=== PATIENT | male | born 1970 | race Caucasian/White ===

== ENCOUNTER 2017-05-14 21:54 | Observation (INO) | payer MEDICARE ==
[~2017-05-14] VITALS: Ht 180.3 cm; Wt 110.0 kg
[2017-05-14] MEDS ORDERED: IOHEXOL 350 MG/ML 10 ML VIAL (for RAD DIAG) IVCONTRAST ONE (21:55)
[2017-05-14 21:56] VITALS: BP 180/90; PULSE 105; RESP 16; TEMP 98; O2SAT 97
[2017-05-14 22:50] VITALS: BP 120/77; PULSE 92; RESP 16; O2SAT 100
[2017-05-14] MEDS: NITROGLYCERIN 0.4 MG SL 25 TABS/BTL SL SCH ×4 (23:00→23:34)
[2017-05-14] MEDS ORDERED: SODIUM CHLORID 0.9% 500 ML INJ 500 ML IV ONE (23:00)
[2017-05-14] MEDS ORDERED: ASPIRIN 81 MG CHEW TAB PO ONE (23:00)
[2017-05-14] MEDS ORDERED: SODIUM CHLORIDE 0.9% FLUSH 10 ML FLUSH IVF PRN (23:00)
[2017-05-14] MEDS ORDERED: NITROGLYCERIN 2% OINT 1 GM PACKET TOP ONE (23:00)
--- NOTE | 2017-05-14 23:25 | PD ---
HPI Chief Complaint: Chest Pain Time Seen by Provider: 22:47 Travel History International Travel<30 days: No Contact w/Intl Traveler<30days: No Traveled to known affect area: No History of Present Illness HPI The patient is a 46 year old male who presents to the [facility] emergency department with a history of chest pain that he reports began in the left side of the chest 2 hours prior to arrival. The patient reports that the pain is constant and sharp in character. He reports that it is worse with taking a deep breath. He reports having associated shortness of breath. He reports that his recent history is been complicated by of 17 week course of persistent cough that has worsened over the last 2 weeks. He reports that the cough is mainly dry in character and has been associated with posttussive emesis. The patient reports that he's been to his primary care physician as well as an investigative research specialist regarding the cough and laryngitis. The patient denies being on any antibiotic. The patient reports that he was seen last week at [facility] emergency department regarding this cough. He reports a chest x-ray was done that was unremarkable. He was placed on a steroid taper, a rescue inhaler, and benzonatate capsules. He reports that the symptoms have not improved. He denies ever having stress testing done previously. He denies any history of coronary artery disease, PE or DVT. He reports that he is visiting from [place]. On review of systems otherwise, the patient denies having any recent fevers, neck pain, abdominal pain, diarrhea , urinary symptoms, or neurologic symptoms. He reports having a problem with constipation in the past. He does occasionally use stool softeners. His last bowel movement was earlier today. [facility], [facility] Past Medical History Narrative Medical The patient's past medical history is significant for renal carcinoma status post nephrectomy, history of hypertension Cancer: Yes (RENAL ) Cirrhosis: Yes Hypertension: Yes Past Surgical History Narrative Surgical The patient's past surgical history is significant for a nephrectomy, appendectomy, history of abdominal hernia repair. Appendectomy: Yes Other Surgery: Yes (KIDNEY CA ) Social History Alcohol Use: No Tobacco Use: No Substance Use: No Allergies-Medications (Allergen,Severity, Reaction): Coded Allergies: adhesive (Verified Allergy, Unknown, 05/14/17) bupropion (Verified Allergy, Unknown, 05/14/17) latex (Verified Allergy, Unknown, 05/14/17) Reported Meds & Prescriptions Reported Meds & Active Scripts Active Losartan (Losartan Potassium) 50 Mg Tab 50 Mg PO DAILY Reported Amitriptyline (Amitriptyline HCl) 10 Mg Tab 20 Mg PO HS Prednisone (21) 10 mg tab Dose Pack (Prednisone) 10 Mg Pack 10 Mg PO DIRECTED Metoprolol Succinate ER 24 HR (Metoprolol Succinate) 50 Mg Tab 50 Mg PO DAILY Ventolin Hfa 18 GM Inh (Albuterol Sulfate) 90 Mcg/Act Aer 2 Puff INH Q6H PRN [promethazine-DM] 5 Ml PO Q6HR PRN Tramadol (Tramadol HCl) 50 Mg Tab 50 Mg PO BID PRN Percocet (Oxycodone-Acetaminophen) 5-325 mg Tab 1 Tab PO Q6H PRN Review of Systems Except as stated in HPI: all other systems reviewed are Neg General / Constitutional: No: Fever Eyes: No: Visual changes HENT: Positive: Congestion, No: Headaches Cardiovascular: Positive: Chest Pain or Discomfort, Dyspnea on exertion Respiratory: Positive: Cough, Shortness of Breath Gastrointestinal: Positive: Vomiting, Other (he reports having posttussive emesis.), No: Nausea, Diarrhea, Abdominal Pain Genitourinary: No: Dysuria Musculoskeletal: No: Pain Skin: No Rash Neurologic: No: Weakness, Focal Abnormalities, Change in Mentation, Slurred Speech, Sensory Disturbance Psychiatric: No: Depression Endocrine: No: Polydipsia Hematologic/Lymphatic: No: Easy Bruising Physical Exam Narrative General: The patient is a well-developed well-nourished male in no acute distress. The patient has a frequent dry sounding cough on examination. Head and Neck exam: Head is normocephalic atraumatic. Eyes: EOMI, pupils are equal round and reactive to light. Nose: Midline septum with pink mucous membranes Mouth: Dentition unremarkable. Moist mucus membranes. Posterior oropharynx is not erythematous. No tonsillar hypertrophy. Uvula midline. Airway patent. Neck: No palpable lymphadenopathy. No nuchal rigidity. No thyromegaly. Cardiovascular: Regular rate and rhythm without murmurs, gallops, or rubs. Lungs: Soft expiratory wheezes audible in bilateral lung lee, crackles audible in the left lower lung base. No rhonchi. No tripoding. No accessory muscle use. No paroxysmal abdominal breathing. Abdomen: Soft, without tenderness to palpation in all 4 quadrants of the abdomen. No guarding, rebound, or rigidity. Normal bowel sounds are audible. No tenderness on palpation of McBurney's point. The patient has a ventral abdominal hernia that is soft and easily reducible. Extremities: No clubbing, cyanosis, or edema. 2+ pulses in all 4 extremities. No calf tenderness on palpation. Back: No spinous process tenderness to palpation. No costovertebral angle tenderness to palpation. Neurologic Exam: Grossly nonfocal. Skin Exam: No rash noted. Intact skin that is warm and dry. Data Data Last Documented VS Vital Signs Date Time Temp Pulse Resp B/P (MAP) Pulse Ox O2 Delivery O2 Flow Rate FiO2 05/15/17 00:30 93 21 05/14/17 23:35 97 18 146/85 (105) Room Air 05/14/17 21:56 98.0 Orders Orders Electrocardiogram (05/14/17 22:47) B-Type Natriuretic Peptide (05/14/17 22:47) Ckmb (Isoenzyme) Profile (05/14/17 22:47) Complete Blood Count With Diff (05/14/17 22:47) Comprehensive Metabolic Panel (05/14/17 22:47) D-Dimer (05/14/17 22:47) Magnesium (Mg) (05/14/17 22:47) Prothrombin Time / Inr (Pt) (05/14/17 22:47) Act Partial Throm Time (Ptt) (05/14/17 22:47) Troponin I (05/14/17 22:47) Lipase (05/14/17 22:47) Chest, Single Ap (05/14/17 22:47) Ecg Monitoring (05/14/17 22:47) Bilateral Bp Monitoring (05/14/17 22:47) Iv Access Insert/Monitor (05/14/17 22:47) Oximetry (05/14/17 22:47) Oxygen Administration (05/14/17 22:47) Aspirin Chew (Aspirin Chew) (05/14/17 23:00) Nitroglycerin 2% Oint (Nitroglycerin 2% (05/14/17 23:00) Sodium Chloride 0.9% Flush (Ns Flush) (05/14/17 23:00) Nitroglycerin Sl (Nitrostat Sl) (05/14/17 23:00) Sodium Chlorid 0.9% 500 Ml Inj (Ns 500 M (05/14/17 23:00) Ct Pulmonary Angiogram (05/15/17 00:18) Albuterol-Ipratropium Neb (Duoneb Neb) (05/15/17 00:30) CKMB (05/14/17 23:30) CKMB% (05/14/17 23:30) Iohexol 350 Inj (Omnipaque 350 Inj) (05/14/17 21:55) Sodium Chlorid 0.9% 500 Ml Inj (Ns 500 M (05/15/17 01:15) Admit Order (Ed Use Only) (05/15/17 01:14) Azithromycin Inj (Zithromax Inj) (05/15/17 01:15) Labs Laboratory Tests Test 05/14/17 23:30 White Blood Count 11.5 TH/MM3 Red Blood Count 5.20 MIL/MM3 Hemoglobin 15.5 GM/DL Hematocrit 44.9 % Mean Corpuscular Volume 86.4 FL Mean Corpuscular Hemoglobin 29.9 PG Mean Corpuscular Hemoglobin Concent 34.6 % Red Cell Distribution Width 14.1 % Platelet Count 252 TH/MM3 Mean Platelet Volume 8.6 FL Neutrophils (%) (Auto) 78.5 % Lymphocytes (%) (Auto) 9.0 % Monocytes (%) (Auto) 12.1 % Eosinophils (%) (Auto) 0.1 % Basophils (%) (Auto) 0.3 % Neutrophils # (Auto) 9.1 TH/MM3 Lymphocytes # (Auto) 1.0 TH/MM3 Monocytes # (Auto) 1.4 TH/MM3 Eosinophils # (Auto) 0.0 TH/MM3 Basophils # (Auto) 0.0 TH/MM3 CBC Comment DIFF FINAL Differential Comment Prothrombin Time 10.1 SEC Prothromb Time International Ratio 1.0 RATIO Activated Partial Thromboplast Time 26.9 SEC D-Dimer Quantitative (PE/DVT) 0.29 MG/L FEU Blood Urea Nitrogen 16 MG/DL Creatinine 0.96 MG/DL Random Glucose 105 MG/DL Total Protein 7.2 GM/DL Albumin 3.5 GM/DL Calcium Level 8.4 MG/DL Magnesium Level 2.0 MG/DL Alkaline Phosphatase 118 U/L Aspartate Amino Transf (AST/SGOT) 30 U/L Alanine Aminotransferase (ALT/SGPT) 35 U/L Total Bilirubin 0.3 MG/DL Sodium Level 141 MEQ/L Potassium Level 3.7 MEQ/L Chloride Level 107 MEQ/L Carbon Dioxide Level 27.3 MEQ/L Anion Gap 7 MEQ/L Estimat Glomerular Filtration Rate 84 ML/MIN Total Creatine Kinase 605 U/L Creatine Kinase MB 1.2 NG/ML Creatine Kinase MB % 0.2 % Troponin I 0.03 NG/ML B-Type Natriuretic Peptide 24 PG/ML Lipase 90 U/L [facility] Medical Decision Making Medical Screen Exam Complete: Yes Emergency Medical Condition: Yes Medical Record Reviewed: Yes Interpretation(s) Last Impressions CT Angiography 05/15/17 0018 Signed Impressions: Service Date/Time: Monday, May 15, 2017 00:43 - CONCLUSION: 1. Negative for pulmonary embolus. 2. Ventral hernia containing loop of colon. 3. Incidental nodular enlargement of the right lobe of the thyroid gland. Desean Toure MD ADDENDUM: Coronary arteries were reevaluated on the pulmonary angiogram study. The left main, LAD and diagonal branches appear patent. Circumflex artery also appears patent. The right proximal and distal coronary artery as well as the PDA appears patent. There is significant artifact within the right mid coronary artery. Travis Bach MD Chest X-Ray 05/14/17 1819 Signed Impressions: Service Date/Time: Sunday, May 14, 2017 23:02 - CONCLUSION: 1. Minimal basilar atelectasis. No effusion or pneumothorax. Desean Toure MD Differential Diagnosis Acute coronary syndrome, versus bronchitis, versus chest wall strain, versus rib fracture, versus pulmonary embolism, versus new-onset congestive heart failure, versus pneumonia Narrative Course During the course of the patients emergency department visit, the patients history, examination, and differential diagnosis were reviewed with the patient. The patient was placed on a monitoring and evaluation advisor with oximetry and frequent blood pressure monitoring. The patient had IV access obtained and blood work sent for analysis. The patient had an EKG done on arrival that shows a sinus rhythm heart rate of 93, incomplete right bundle branch block, QRS duration 106 ms, QTC [address] segment elevation and T waves inverted in V1. The patient was initially provided normal saline a 500 mL bolus, sublingual nitroglycerin every 5 minutes 3 when necessary chest pain, nitroglycerin 1 inch the chest wall, aspirin 324 mg by mouth 1. The patients laboratory studies were reviewed and remarkable for a white count of 11.5, hemoglobin 15.5, platelets 252, neutrophils 78.5, monocytes 12.1. CMP is remarkable for a GFR of 84, calcium 8.4, alkaline phosphatase 118, CPK 605 with a normal MB percent, troponin I 0.03, BNP 24, lipase 90, PT PTT within normal limits, Radiology studies were reviewed and remarkable for a chest x-ray shows no acute abnormality, CTA to rule out PE shows a negative exam for pulmonary embolism, ventral hernia containing loops of colon, incidental nodular enlargement of the right lobe thyroid gland. The patients results were discussed with the patient, including the plan of care. I explained that further testing and/ or monitoring is indicated based on the patients history, examination, and/ or laboratory findings. Therefore, I recommended admission for additional evaluation. The patient expressed understanding and was agreeable with this plan. The patient was admitted to the hospital in stable condition and sent to a bed under the care of the chest pain center. Diagnosis Primary Impression: Chest pain Qualified Codes: R07.9 - Chest pain, unspecified Admitting Information Admitting Physician Requests: Observation Scripts Losartan (Losartan) 50 Mg Tab 50 MG PO DAILY for Blood Pressure Management, #30 TAB 0 Refills Prov: Tejinder Choi 05/15/17 Rekha Romo MD May 14, 2017 23:25
[2017-05-14 23:35] VITALS: BP 146/85; PULSE 97; RESP 18; O2SAT 97
--- NOTE | 2017-05-14 23:35 | RADRPT ---
EXAM DATE/TIME: 05/14/2017 23:02 [facility] COMPARISON: No previous studies available for comparison. INDICATIONS : Short of breath and chest pain. MEDICAL HISTORY : None. SURGICAL HISTORY : None. ENCOUNTER: Initial ACUITY: 1 day PAIN SCORE: 8/10 LOCATION: Bilateral chest FINDINGS: A single view of the chest demonstrates the lungs to be symmetrically aerated without evidence of mas s, infiltrate or effusion. Minimal basilar atelectasis. The cardiomediastinal contours are unremarkab le. Osseous structures are intact. CONCLUSION: 1. Minimal basilar atelectasis. No effusion or pneumothorax. Desean Toure MD on May 14, 2017 at 23:31 Board Certified Radiologist. This report was verified electronically.
[2017-05-14] MEDS ORDERED: AMIT10TA6 PO (23:46)
[2017-05-14] MEDS ORDERED: TRAM50TA PO (23:46)
[2017-05-14] MEDS ORDERED: [UNRECOGNIZED DRUG - CODE] PO (23:46)
[2017-05-14] MEDS ORDERED: LISI-515 PO (23:46)
[2017-05-14] MEDS ORDERED: VENTAER INH (23:46)
[2017-05-14] MEDS ORDERED: PERC5TAB12 PO (23:46)
[2017-05-14] MEDS ORDERED: METO1TAB9 PO (23:49)
[2017-05-14] MEDS ORDERED: PRED10PA PO (23:49)
[2017-05-14 23:57] LABS: AUTOMATED NEUTROPHIL # 9.1 TH/MM3 (1.8-7.7); BASOPHIL % 0.3 % (0.0-2.0); EOSINOPHIL % 0.1 % (0.0-4.0); HEMATOCRIT 44.9 % (39.0-51.0); HEMOGLOBIN 15.5 GM/DL (13.0-17.0); MEAN CELL VOLUME 86.4 FL (80.0-100.0); MEAN CORPUSCULAR HEMOGLOBIN 29.9 PG (27.0-34.0); MEAN CORPUSCULAR HGB CONC 34.6 % (32.0-36.0); MEAN PLATELET VOLUME 8.6 FL (7.0-11.0); MONO % 12.1 % (0.0-8.0); MONOCYTE # 1.4 TH/MM3 (0-0.9); NEUT % 78.5 % (16.0-70.0); PLATELET COUNT 252 TH/MM3 (150-450); RED CELL DISTRIBUTION WIDTH 14.1 % (11.6-17.2); WHITE BLOOD COUNT 11.5 TH/MM3 (4.0-11.0)
[2017-05-15 00:15] LABS: PROTHROMBIN TIME - PATIENT 10.1 SEC (9.8-11.6)
[2017-05-15 00:19] LABS: D-DIMER 0.29 MG/L FEU (0.00-0.50)
[2017-05-15 00:22] LABS: ALT (GPT) 35 U/L (12-78)
[2017-05-15 00:26] LABS: ALKALINE PHOSPHATASE 118 U/L (45-117); TOTAL BILIRUBIN ADULT 0.3 MG/DL (0.2-1.0); TOTAL PROTEIN 7.2 GM/DL (6.4-8.2); TROPONIN I 0.03 NG/ML (0.02-0.05)
[2017-05-15 00:30] VITALS: O2SAT 93
[2017-05-15] MEDS ORDERED: RESP: ALBUTEROL 2.5 MG/IPRATROPIUM 0.5 MG NEB (SCH) NEB ONE ×2 (00:30→03:30)
[2017-05-15 00:31] LABS: ALBUMIN 3.5 GM/DL (3.4-5.0); AST (GOT) 30 U/L (15-37); BICARBONATE 27.3 MEQ/L (21.0-32.0); BLOOD UREA NITROGEN 16 MG/DL (7-18); CALCIUM 8.4 MG/DL (8.5-10.1); CHLORIDE 107 MEQ/L (98-107); CREATININE 0.96 MG/DL (0.60-1.30); GLOMERULAR FILTRATION RATE 84 ML/MIN (>89); GLUCOSE,RANDOM 105 MG/DL (74-106); LIPASE 90 U/L (73-393); SODIUM (NA) 141 MEQ/L (136-145)
[2017-05-15] MEDS ORDERED: SODIUM CHLORID 0.9% 500 ML INJ 500 ML IV ONE (01:15)
[2017-05-15] MEDS ORDERED: AZITHROMYCIN INJ 500 MG in SODIUM CHLOR 0.9% 250 ML INJ 250 ML IV ONE (01:15)
[2017-05-15] MEDS ORDERED: AZIT250T3 PO (01:15)
--- NOTE | 2017-05-15 01:20 | RADRPT ---
EXAM DATE/TIME: 05/15/2017 00:43 This report includes an Addendum and supersedes previous reports for this exam. [facility] COMPARISON: No previous studies available for comparison. INDICATIONS : Left sided chest pain with shortness of breath. IV CONTRAST: 70 cc Omnipaque 350 (iohexol) IV RADIATION DOSE: 10.91 CTDIvol (mGy) MEDICAL HISTORY : Hypertension. Renal cell carcinoma. Cirrhosis. SURGICAL HISTORY : Partial nephrectomy ENCOUNTER: Initial ACUITY: 2 weeks PAIN SCALE: 5/10 LOCATION: Left chest TECHNIQUE: Volumetric scanning of the chest was performed using a pulmonary embolism protocol MIP images were re constructed. Using automated exposure control and adjustment of the mA and/or kV according to patien t size, radiation dose was kept as low as reasonably achievable to obtain optimal diagnostic quality images. DICOM format image data is available electronically for review and comparison. Follow-up recommendations for detected pulmonary nodules are based at a minimum on nodule size and pa tient risk factors according to Fleischner Society Guidelines. FINDINGS: No filling defects in the pulmonary arteries to suggest pulmonary embolic disease. No focal consolidation. No pleural or pericardial effusion. Upper abdomen reveals fatty liver. There is a ventral hernia incompletely imaged but containing at le ast a small lymph transverse colon. CONCLUSION: 1. Negative for pulmonary embolus. 2. Ventral hernia containing loop of colon. 3. Incidental nodular enlargement of the right lobe of the thyroid gland. Desean Toure MD on May 15, 2017 at 1:12 Board Certified Radiologist. This report was verified electronically. ADDENDUM: Coronary arteries were reevaluated on the pulmonary angiogram study. The left main, LAD and diagonal branches appear patent. Circumflex artery also appears patent. The right proximal and dista l coronary artery as well as the PDA appears patent. There is significant artifact within the right m id coronary artery. Travis Bach MD on May 15, 2017 at 11:56 Board Certified Radiologist. This report was verified electronically.
[2017-05-15 04:12] VITALS: BP 144/81; PULSE 92; RESP 18; TEMP 98.1; O2SAT 93
[2017-05-15 07:55] VITALS: O2SAT 94
[2017-05-15 08:00] VITALS: BP 132/72; PULSE 82; RESP 20; TEMP 98.8; O2SAT 94
[2017-05-15 08:45] VITALS: PULSE 95
[2017-05-15 08:58] VITALS: PULSE 87
[2017-05-15] MEDS ORDERED: oxyCODONE/ACETAMINOPHEN 5 MG/325 MG TAB PO PRN (09:15)
--- NOTE | 2017-05-15 09:22 | HHI.HP ---
HPI Primary Care Physician No Primary Care Physician Chief Complaint Chest pain and cough History of Present Illness This is a 46-year-old male that presents to ED with history of hypertension and ventral hernias with a complaint of 16 weeks of coughing and 3 years of intermittent left-sided chest discomfort. He states the discomfort in his chest feels like a punch in the chest and can last a couple hours. Usually happens about every 6 months or so. States he had this fully evaluated a few months ago in [place]. States he had a normal chemical stress test. States that his physicians did not advise cardiac catheterization after stress testing. States he had a chest discomfort last evening while sitting. Describes it as a sensation that somebody punched him. It lasted a couple hours. States of both hands felt tingly. He decided to come to ED. While in ED he also was complaining of this cough that he has had for 16 weeks. It began while he was in [place]. He has been in this area for 3 weeks. States he has had this evaluated and is even seen ENT for the cough. He was started on an ELVIS inhibitor in March but that was will after he had already started coughing. However he discontinued the medication and the end of March same it was making him dizzy. The cough is primarily nonproductive. Occasionally clear colored mucus and occasionally a little pink coloration will be in the sputum. States he was seen 4 times a [facility] for this cough since last and was given medication. He states the pharmacist would not fill it, stating it was the same thing as cocaine. Does not recall with the medication was. He has been on antibiotics several times for this cough as well as steroids. He is a nonsmoker. Denies fevers or chills. Denies weight loss or gain. States that he has had CAT scan and MRIs for this while in [place] and was told that everything looked okay. A CTA at this facility revealed a right thyroid gland nodular enlargement which she is not really aware of and prior scans. He will need to discuss this with his physician when returning to [place] which he states he would be doing that in a few days. Currently denies chest discomfort. Review of Systems General: Patient denies fevers, chills recent, and recent travel HEENT: Patient denies headache, sore throat, difficulty swallowing. Cardiovascular: Has the chest discomfort as mentioned above. Denies sensation of heart beating rapidly or irregularly. No syncope. Denies diaphoresis. Respiratory: He has had primarily a nonproductive cough. Occasional clear colored mucus and also occasionally a little bit of pink discoloration will be in the sputum. Denies shortness of breath or inspirational chest discomfort. Denies wheezing or hemoptysis. GI: Patient denies nausea, vomiting, diarrhea, abdominal pain, bloody stools. Musculoskeletal: Patient denies joint pain or edema. Denies calf pain or edema. Neurovascular: Patient denies numbness, tingling, weakness in extremities. Denies headache. Endocrine: Denies polyuria and polydipsia. Hematologic: Denies easy bruising. Skin: Denies rash or itching. Past Family Social History Allergies: Coded Allergies: adhesive (Verified Allergy, Unknown, 05/14/17) bupropion (Verified Allergy, Unknown, 05/14/17) latex (Verified Allergy, Unknown, 05/14/17) Past Medical History Hypertension and chronic ventral hernia stating he has had multiple procedures for this. States he is disabled secondary to his ventral hernias. History of renal cell carcinoma with nephrectomy. Denies hyperlipidemia diabetes and known CAD. Past Surgical History Multiple surgical repair for ventral hernias. Nephrectomy secondary to renal carcinoma. Appendectomy. Reported Medications Reported Meds & Active Scripts Active Azithromycin 250 Mg Tab 250 Mg PO DAILY 4 Days Reported Prednisone (21) 10 mg tab Dose Pack (Prednisone) 10 Mg Pack 10 Mg PO DIRECTED Metoprolol Succinate ER 24 HR (Metoprolol Succinate) 50 Mg Tab 50 Mg PO DAILY Ventolin Hfa 18 GM Inh (Albuterol Sulfate) 90 Mcg/Act Aer 2 Puff INH Q6H PRN [promethazine-DM] 5 Ml PO Q6HR PRN Amitriptyline (Amitriptyline HCl) 10 Mg Tab 10 Mg PO HS Tramadol (Tramadol HCl) 50 Mg Tab 50 Mg PO BID PRN Percocet (Oxycodone-Acetaminophen) 5-325 mg Tab 1 Tab PO Q6H PRN Active Ordered Medications Current Medications Medications (Trade) Dose Ordered Sig/Dennis Route Start Time Stop Time Status Last Admin (NS Flush) 2 ml UNSCH PRN IVF 05/14/17 23:00 (Duoneb Neb) 1 ampule Q6HR NEB NEB 05/15/17 10:00 05/15/17 07:53 (Toprol Xl) 50 mg DAILY PO 05/15/17 16:00 UNV (Percocet 5-325 Mg) 1 tab Q6H PRN PO 05/15/17 09:15 UNV Family History States that his father has CAD. Social History Nonsmoker. Denies alcohol or illicit drugs. Physical Exam Vital Signs Vital Signs Date Time Temp Pulse Resp B/P (MAP) Pulse Ox O2 Delivery O2 Flow Rate FiO2 05/15/17 07:55 94 21 05/15/17 04:12 98.1 92 18 144/81 (102) 93 05/15/17 00:30 93 21 05/14/17 23:35 97 18 146/85 (105) 97 Room Air 05/14/17 23:16 100 Room Air 05/14/17 22:50 92 16 120/77 (91) 100 Room Air 05/14/17 21:56 98.0 105 16 180/90 (120) 97 Room Air Physical Exam GENERAL: This is a well-nourished, well-developed patient, in no apparent distress. Patient speaks in clear complete sentences. Patient is pleasant. He began coughing after speaking for a while. HEENT: Head is atraumatic and normocephalic. Neck is supple without lymphadenopathy and trachea is midline. No JVD or carotid bruits. CARDIOVASCULAR: Regular rate and rhythm without murmurs, gallops, or rubs. RESPIRATORY: Clear to auscultation. Breath sounds equal bilaterally. No wheezes , rales, or rhonchi. Chest wall is nontender. No use of accessory muscles. GASTROINTESTINAL: Abdomen is tender, nondistended. Abdomen soft. There is ventral hernia. No obvious pulsatile mass or bruit. No CVA tenderness. Strong femoral pulses bilaterally. Normal bowel sounds in all quadrants. MUSCULOSKELETAL: Patient is moving upper and lower extremities freely. No calf tenderness or edema, no Homans sign. Strong pulses in upper and lower extremities. NEUROLOGICAL: Patient is alert and oriented. Cranial nerves 2-12 are grossly intact. No focal deficits and speech is clear. SKIN: No rash and turgor is normal. Laboratory Laboratory Tests Test 05/14/17 23:30 05/15/17 03:00 05/15/17 05:25 White Blood Count 11.5 Red Blood Count 5.20 Hemoglobin 15.5 Hematocrit 44.9 Mean Corpuscular Volume 86.4 Mean Corpuscular Hemoglobin 29.9 Mean Corpuscular Hemoglobin Concent 34.6 Red Cell Distribution Width 14.1 Platelet Count 252 Mean Platelet Volume 8.6 Neutrophils (%) (Auto) 78.5 Lymphocytes (%) (Auto) 9.0 Monocytes (%) (Auto) 12.1 Eosinophils (%) (Auto) 0.1 Basophils (%) (Auto) 0.3 Neutrophils # (Auto) 9.1 Lymphocytes # (Auto) 1.0 Monocytes # (Auto) 1.4 Eosinophils # (Auto) 0.0 Basophils # (Auto) 0.0 CBC Comment DIFF FINAL Differential Comment Prothrombin Time 10.1 Prothromb Time International Ratio 1.0 Activated Partial Thromboplast Time 26.9 D-Dimer Quantitative (PE/DVT) 0.29 Blood Urea Nitrogen 16 Creatinine 0.96 Random Glucose 105 Total Protein 7.2 Albumin 3.5 Calcium Level 8.4 Magnesium Level 2.0 Alkaline Phosphatase 118 Aspartate Amino Transf (AST/SGOT) 30 Alanine Aminotransferase (ALT/SGPT) 35 Total Bilirubin 0.3 Sodium Level 141 Potassium Level 3.7 Chloride Level 107 Carbon Dioxide Level 27.3 Anion Gap 7 Estimat Glomerular Filtration Rate 84 Total Creatine Kinase 605 Creatine Kinase MB 1.2 Creatine Kinase MB % 0.2 Troponin I 0.03 0.03 0.03 B-Type Natriuretic Peptide 24 Lipase 90 Result Diagram: 05/14/17 2330 05/14/17 2330 Imaging Last [address] Angiography 05/15/17 0018 Signed Impressions: Service Date/Time: Monday, May 15, 2017 00:43 - CONCLUSION: 1. Negative for pulmonary embolus. 2. Ventral hernia containing loop of colon. 3. Incidental nodular enlargement of the right lobe of the thyroid gland. Desean Toure MD Chest X-Ray 05/14/17 2248 Signed Impressions: Service Date/Time: Sunday, May 14, 2017 23:02 - CONCLUSION: 1. Minimal basilar atelectasis. No effusion or pneumothorax. Desean Toure MD Course EKGs have been sinus rhythm without significant ST segment depressions or elevations. There is incomplete right bundle branch block. Caprini VTE Risk Assessment Caprini VTE Risk Assessment: No/Low Risk (score <= 1) Caprini Risk Assessment Model Point Value = 1 Point Value = 2 Point Value = 3 Point Value = 5 Age 41-60 Minor surgery BMI > 25 kg/m2 Swollen legs Varicose veins or History of unexplained or recurrent spontaneous Oral contraceptives or hormone replacement Sepsis (< 1 month) Serious lung disease, including pneumonia (< 1 month) Abnormal pulmonary function Acute myocardial infarction Congestive heart failure (< 1 month) History of inflammatory bowel disease Medical patient at bed rest Age 61-74 Arthroscopic surgery Major open surgery (> 45 min) Laparoscopic surgery (> 45 min) Malignancy Confined to bed (> 72 hours) Immobilizing plaster cast Central venous access Age >= 75 History of VTE Family history of VTE Factor V Leiden Prothrombin [id number] Lupus anticoagulant Anticardiolipin antibodies Elevated serum homocysteine Heparin-induced thrombocytopenia Other congenital or acquired thrombophilia Stroke (< 1 month) Elective arthroplasty Hip, pelvis, or leg fracture Acute spinal cord injury (< 1 month) Prophylaxis Regimen Total Risk Factor Score Risk Level Prophylaxis Regimen 0-1 Low Early ambulation 2 Moderate Order ONE of the following: *Sequential Compression Device (SCD) *Heparin 5000 units SQ BID 3-4 Higher Order ONE of the following medications: *Heparin 5000 units SQ TID *Enoxaparin/Lovenox 40 mg SQ daily (WT < 150 kg, CrCl > 30 mL/min) *Enoxaparin/Lovenox 30 mg SQ daily (WT < 150 kg, CrCl > 10-29 mL/min) *Enoxaparin/Lovenox 30 mg SQ BID (WT < 150 kg, CrCl > 30 mL/min) AND/OR *Sequential Compression Device (SCD) 5 or more Highest Order ONE of the following medications: *Heparin 5000 units SQ TID (Preferred with Epidurals) *Enoxaparin/Lovenox 40 mg SQ daily (WT < 150 kg, CrCl > 30 mL/min) *Enoxaparin/Lovenox 30 mg SQ daily (WT < 150 kg, CrCl > 10-29 mL/min) *Enoxaparin/Lovenox 30 mg SQ BID (WT < 150 kg, CrCl > 30 mL/min) AND *Sequential Compression Device (SCD) Assessment and Plan Assessment and Plan * Chest pain: Patient has had serial cardiac enzymes and EKGs for ruling out purposes. He was seen by Dr. Alexander cardiology and the chest pain center. With recent chemical stress test, this will not be repeated. Will attempt CTA of the coronaries. Discussed this with CT. They might be able to have radiologist make an addendum to CT a of the pulmonary arteries. This is pending. If they are able to make an addendum on prior scan in the coronaries are okay, the patient will be discharged with instructions to follow-up with his PCP and resume his home medications. Return to ED for interval issues. * Hypertension: We will add losartan. Continue his metoprolol. * Chronic ventral hernia pain: We'll continue his chronic pain medication. * Cough: Continue his medications. He has been on antibiotics a few occasions. Likely will not be restarting antibiotics. * Thyroid gland nodule enlargement: Patient will be given copy of CT on disc to take back with him to [place] and have ENT evaluated. He was recently seen by ENT and [place] within the last 2 or 3 weeks. Patient is stable at this time. He is agreeable to this plan. Tejinder Choi May 15, 2017 09:22
[2017-05-15] MEDS ORDERED: AMIT10TA6 PO (09:24)
[2017-05-15] MEDS ORDERED: LOSARTAN 50 MG TAB PO SCH (09:45)
[2017-05-15] MEDS ORDERED: RESP: ALBUTEROL 2.5 MG/IPRATROPIUM 0.5 MG NEB (SCH) NEB (10:00)
[2017-05-15] MEDS ORDERED: SODIUM CHLOR 0.9% 1000 ML INJ 1,000 ML IV SCH (11:55)
[2017-05-15] MEDS ORDERED: LOSA50TA PO (12:22)
--- NOTE | 2017-05-15 12:23 | HHI.DCPOC ---
Discharge Care Plan Diagnosis: (1) Chest pain (2) Hypertension (3) Cough (4) Thyroid nodule Goals to Promote Your Health DISCUSS RESULTS OF ENLARGED THYROID NODULE WITH YOUR EARS NOSE AND THROAT SPECIALIST WITHIN 7-10 DAYS. * To prevent worsening of your condition and complications * To maintain your health at the optimal level Directions to Meet Your Goals Take your medications as prescribed Follow your dietary instruction Follow activity as directed Keep your appointments as scheduled Take your immunizations and boosters as scheduled If your symptoms worsen call your PCP, if no PCP go to Urgent Care Center or Emergency Room Smoking is Dangerous to Your Health. Avoid second hand smoke Call the 24-hour hour crisis hotline for domestic abuse at Tejinder Choi May 15, 2017 12:23
[2017-05-15] MEDS ORDERED: METOPROLOL SUCCINATE 50 MG EXTENDED RELEASE TAB PO SCH (16:00)
--- NOTE | 2017-05-15 16:13 | EKG ---
Date Performed: 05/14/2017 Time Performed: 23:22:14 PTAGE: 46 years EKG: Sinus rhythm INCOMPLETE RIGHT BUNDLE BRANCH BLOCK NONSPECIFIC T-WAVE ABNORMALITY BORDERLINE ECG NO PREVIOUS TRACING DOCTOR: Muriel Alexander Interpretating Date/Time 05/15/2017 16:11:18
--- NOTE | 2017-05-15 16:14 | EKG ---
Date Performed: 05/15/2017 Time Performed: 06:03:46 PTAGE: 46 years EKG: Sinus rhythm INCOMPLETE RIGHT BUNDLE BRANCH BLOCK NONSPECIFIC T-WAVE ABNORMALITY BORDERLINE ECG Since PREVIOUS TRACING , no significant change noted PREVIOUS TRACIN05/15/2017 03.43 DOCTOR: Muriel Alexander Interpretating Date/Time 05/15/2017 16:12:44
--- NOTE | 2017-05-15 16:14 | EKG ---
Date Performed: 05/15/2017 Time Performed: 03:43:26 PTAGE: 46 years EKG: Sinus rhythm INCOMPLETE RIGHT BUNDLE BRANCH BLOCK MODERATE VOLTAGE CRITERIA FOR LVH, CONSIDER NORMAL VARIANT NONS PECIFIC T-WAVE ABNORMALITY BORDERLINE ECG Since PREVIOUS TRACING , no significant change noted PREVIOUS TRACIN05/14/2017 23.22 DOCTOR: Muriel Alexander Interpretating Date/Time 05/15/2017 16:12:16
== END 2017-05-15 13:34 | disposition home or self-care (01) ==
LOC: NEPE 21:54 → NEDA 05-15 01:16 → NEPGCP 05-15 02:33
PROVIDERS: ADMIT Internal Medicine Cardiovascular Disease; ATTEND Internal Medicine Cardiovascular Disease
DX: R07.9 Chest pain, unspecified (principal); I10 Essential (primary) hypertension; K43.9 Ventral hernia without obstruction or gangrene; R05 Cough; E04.1 Nontoxic single thyroid nodule; R06.02 Shortness of breath; K59.00 Constipation, unspecified; Z85.528 Personal history of other malignant neoplasm of kidney; Z90.5 Acquired absence of kidney; K74.60 Unspecified cirrhosis of liver; Z79.899 Other long term (current) drug therapy; J98.11 Atelectasis; I45.10 Unspecified right bundle-branch block; R94.31 Abnormal electrocardiogram [ECG] [EKG]
CPT/HCPCS: 71045; 71275; 80053; 82550; 82552; 83690; 83735; 83880; 84484; 85025; 85379; 85610; 85730; 93005; 94640; 94664; 96361; 96365; 99285; G0378; J0456; J7040; J7050; Q9967

== ENCOUNTER 2017-07-05 18:51 | Emergency (ER) | payer MEDICARE ==
[~2017-07-05] VITALS: Ht 180.3 cm; Wt 105.0 kg
[~2017-07-05 18:51] MED LIST: AMIT10TA6 PO; LOSA50TA PO; METO1TAB9 PO; PERC5TAB12 PO; PRED10PA PO; TRAM50TA PO; VENTAER INH; [UNRECOGNIZED DRUG - CODE] PO
[2017-07-05 18:55] VITALS: BP 168/86; PULSE 104; RESP 16; TEMP 98.5; O2SAT 97
[2017-07-05] MEDS ORDERED: BACT800T5 PO (21:02)
--- NOTE | 2017-07-05 21:03 | PD ---
HPI Chief Complaint: Skin Problem Time Seen by Provider: 20:53 Travel History International Travel<30 days: No Contact w/Intl Traveler<30days: No Traveled to known affect area: No History of Present Illness HPI PATIENT CAME IF AFTER NOTING 2 DAYS OF REDNESS TO HIS RIGHT SIDE OF LOWER ABDOMEN, NO WEEPING. NO ASSOC ABD PAIN/N/V/D/FEVER/ PRESENT...NO ALLEVIATING/ AGGRAVATING FACTOR....HAS NOT HAD IT EVALUATED PRIOR TO TODAY. ALL:ADHESIVE, LATEX AND BUPROPION PMHX SIG FOR HTN, APPENDECTOMY, CHOLESTEROL, CIRRHOSIS HX, STATES KIDNEY CA IN REMISSION PFSH Past Medical History Heart Rhythm Problems: Yes Cancer: Yes (RENAL ) Cardiac Catheterization: No Cardiovascular Problems: Yes (chest pain and abdomen pain ongoing for 3 years) High Cholesterol: No Chemotherapy: Yes Congestive Heart Failure: No Cirrhosis: Yes Diabetes: No Hypertension: Yes Past Surgical History Appendectomy: Yes Coronary Artery Bypass Graft: No Other Surgery: Yes (KIDNEY CA ) Social History Alcohol Use: No Tobacco Use: No Substance Use: No Allergies-Medications (Allergen,Severity, Reaction): Coded Allergies: adhesive (Verified Allergy, Unknown, 05/14/17) bupropion (Verified Allergy, Unknown, 05/14/17) latex (Verified Allergy, Unknown, 05/14/17) Reported Meds & Prescriptions Reported Meds & Active Scripts Active Losartan (Losartan Potassium) 50 Mg Tab 50 Mg PO DAILY Reported Amitriptyline (Amitriptyline HCl) 10 Mg Tab 20 Mg PO HS Prednisone (21) 10 mg tab Dose Pack (Prednisone) 10 Mg Pack 10 Mg PO DIRECTED Metoprolol Succinate ER 24 HR (Metoprolol Succinate) 50 Mg Tab 50 Mg PO DAILY Ventolin Hfa 18 GM Inh (Albuterol Sulfate) 90 Mcg/Act Aer 2 Puff INH Q6H PRN [promethazine-DM] 5 Ml PO Q6HR PRN Tramadol (Tramadol HCl) 50 Mg Tab 50 Mg PO BID PRN Percocet (Oxycodone-Acetaminophen) 5-325 mg Tab 1 Tab PO Q6H PRN Review of Systems General / Constitutional: No: Fever Eyes: No: Visual changes HENT: No: Headaches Cardiovascular: No: Chest Pain or Discomfort Respiratory: No: Shortness of Breath Gastrointestinal: No: Abdominal Pain Genitourinary: No: Dysuria Musculoskeletal: No: Pain Skin: Positive Lesions Neurologic: No: Weakness Psychiatric: No: Depression Endocrine: No: Polydipsia Hematologic/Lymphatic: No: Easy Bruising Physical Exam Narrative GENERAL: SKIN: Warm and dry.RLQ HAS A HALF DOLLAR INDURATED AREA, WITH 10 CM OF ERYTHEMATOUS CHANGES, NO STREAKING PRESENTLY. NO CREPITUS HEAD: Atraumatic. Normocephalic. EYES: Pupils equal and round. No scleral icterus. No injection or drainage. ENT: No nasal bleeding or discharge. Mucous membranes pink and moist. NECK: Trachea midline. No JVD. CARDIOVASCULAR: Regular rate and rhythm. RESPIRATORY: No accessory muscle use. Clear to auscultation. Breath sounds equal bilaterally. GASTROINTESTINAL: Abdomen soft, non-tender, nondistended. Hepatic and splenic margins not palpable. MUSCULOSKELETAL: Extremities without clubbing, cyanosis, or edema. No obvious deformities. NEUROLOGICAL: Awake and alert. No obvious cranial nerve deficits. Motor grossly within normal limits. Five out of 5 muscle strength in the arms and legs. Normal speech. PSYCHIATRIC: Appropriate mood and affect; insight and judgment normal. Data Data Last Documented VS Vital Signs Date Time Temp Pulse Resp B/P (MAP) Pulse Ox O2 Delivery O2 Flow Rate FiO2 07/05/17 18:55 98.5 104 16 168/86 (113) 97 MDM Medical Decision Making Medical Screen Exam Complete: Yes Emergency Medical Condition: Yes Medical Record Reviewed: Yes Differential Diagnosis ABSCESS V CELLULITIS V LYMPHANGITIS Narrative Course CLINICALLY FINDINGS C/W CELLULITIS, WILL GIVE CLINDA IM AND D/C ON BACTRIM DS Diagnosis Primary Impression: Cellulitis Qualified Codes: L03.311 - Cellulitis of abdominal wall Patient Instructions: Cellulitis (ED), General Instructions Scripts Sulfamethoxazole-Trimethoprim (Bactrim DS) 800-160 Mg Tab 1 TAB PO BID for Infection, #20 TAB 0 Refills Prov: Francisco Kong MD 07/05/17 Disposition: 01 DISCHARGE HOME Condition: Stable Francisco Kong MD Jul 05, 2017 21:03
[2017-07-05] MEDS ORDERED: CLINDAMYCIN PHOS 300 MG/2 ML VIAL IM ONE (21:15)
== END 2017-07-05 22:11 | disposition home or self-care (01) ==
LOC: NEPD 18:51
DX: L03.311 Cellulitis of abdominal wall (principal); I10 Essential (primary) hypertension; K74.60 Unspecified cirrhosis of liver
CPT/HCPCS: 96372